=== PATIENT | female | born 1990 | race Caucasian/White ===

== ENCOUNTER 2018-12-27 08:37 | Observation (INO) | payer OTHER ==
[~2018-12-27] VITALS: Ht 157.5 cm; Wt 61.2 kg
[~2018-12-27 08:37] MED LIST: ALBU0.099 IH; PREN-385 PO
[2018-12-27] MEDS ORDERED: TERBUTALINE 1 MG/ML VIAL SUBQ SCH (09:00)
[2018-12-27] MEDS ORDERED: TERBUTALINE 1 MG/ML VIAL SUBQ ONE (09:13)
[2018-12-27 10:43] VITALS: BP 108/59
== END 2018-12-27 14:15 | disposition home or self-care (01) ==
LOC: MLD 08:37
PROVIDERS: ADMIT Obstetrics & Gynecology; ATTEND Obstetrics & Gynecology
DX: O26.892 Other specified pregnancy related conditions, second trimester (principal); R10.9 Unspecified abdominal pain; Z3A.26 26 weeks gestation of pregnancy
CPT/HCPCS: 81000; 96372; G0378; J3105

== ENCOUNTER 2021-08-17 10:18 | Emergency (ER) | payer OTHER ==
[~2021-08-17] VITALS: Ht 154.9 cm; Wt 70.3 kg
[~2021-08-17 10:18] MED LIST changes: -ALBU0.099 IH
[2021-08-17 10:28] VITALS: BP 117/66
--- NOTE | 2021-08-17 10:32 | NUR ---
PT SENT TO LOBBY
[2021-08-17 11:13] LABS: BASOPHILS # (AUTO) 0.1 K/uL (0.00-0.22); BASOPHILS % (AUTO) 0.6 % (0.0-2.0); EOSINOPHILS # (AUTO) 0.2 K/uL (0-0.4); HEMATOCRIT 39.1 % (36-48); HEMOGLOBIN 12.8 g/dL (12.0-16.0); LYMPHOCYTES # (AUTO) 2.8 K/uL (2.5-16.5); MEAN CORPUSCULAR HEMOGLOBIN 28 pg (27-31); MEAN CORPUSCULAR HGB CONC 33 g/dL (33-37); MEAN CORPUSCULAR VOLUME 86.1 fL (80-94); MONOCYTES # (AUTO) 0.7 K/uL (0.8-1.0); MONOCYTES % (AUTO) 6.5 % (1.7-9.3); NEUTROPHILS # (AUTO) 7.4 K/uL (1.8-7.7); NEUTROPHILS % (AUTO) 65.9 % (42.2-75.2); PLATELET COUNT (AUTO) 296 K/uL (140-450); RED BLOOD CELL COUNT(AUTO) 4.54 MIL/uL (4.20-5.40); RED CELL DISTRIBUTION WIDTH 13.7 % (11.6-13.7); WHITE BLOOD COUNT (AUTO) 11.2 K/uL (4.8-10.8)
[2021-08-17 11:15] LABS: BILIRUBIN,URINE NEGATIVE (NEGATIVE); COLOR,URINE YELLOW (YELLOW); LEUKOCYTE ESTERASE ,URINE 2+ (NEGATIVE); NITRITE, URINE NEGATIVE (NEGATIVE); UGLUCOSE NEGATIVE (NEGATIVE)
[2021-08-17 11:28] LABS: ALBUMIN 3.3 g/dL (3.4-5.0); ANION GAP 9.4 (8-16); CARBON DIOXIDE 27.4 mmol/L (21-32); CREATININE 0.5 mg/dL (0.6-1.3); POTASSIUM 3.8 mmol/L (3.5-5.1); TOTAL BILIRUBIN 0.2 mg/dL (0.0-1.0)
[2021-08-17 11:29] LABS: APPEARANCE,URINE SLIGHTLY HAZY (CLEAR)
[2021-08-17 11:31] LABS: BLOOD, URINE 1+ (NEGATIVE)
[2021-08-17 11:34] LABS: RBC,URINE 0-5 /HPF (0-5)
--- NOTE | 2021-08-17 12:29 | NUR ---
30/F BIB SELF WITH C/O ABDOMINAL CRAMPING AND VAGINAL BLEEDING SINCE THIS MORNING. PATIENT STATES BLEEDING HAS SINCE SLOWED DOWN BUT SHE IS STILL SPOTTING, REPORTS BEING APPROXIMATELY 8 WEEKS REPORTS SOME NAUSEA, DENIES V/D, CP, SOB, FEVER OR CHILLS. A0.
[2021-08-17 13:12] VITALS: BP 108/59
--- NOTE | 2021-08-17 13:13 | NUR ---
Patient discharged with v/s stable. Written and verbal after care instructions ABOUT THREATENED MISCARRIAGE AND SUBCHORIONIC HEMATOMA given and explained. Patient verbalized understanding. Ambulatory with steady gait. All questions addressed prior to discharge. Advised to follow up with PMD.
== END 2021-08-17 13:13 | disposition home or self-care (01) ==
LOC: MED 10:18
DX: O20.8 Other hemorrhage in early pregnancy (principal); J45.909 Unspecified asthma, uncomplicated; Z3A.08 8 weeks gestation of pregnancy; Z88.0 Allergy status to penicillin; Z79.899 Other long term (current) drug therapy
CPT/HCPCS: 36415; 76801; 80053; 81001; 81025; 84702; 85025; 86886; 86900; 86901; 87086; 99284; Q0092

== ENCOUNTER 2022-03-22 09:07 | Inpatient (IN) | payer OTHER ==
[~2022-03-22] VITALS: Ht 154.9 cm; Wt 81.6 kg
[2022-03-22] MEDS ORDERED: CLINDAMYCIN 900 MG in DEXTROSE 5% 100 ML IV SCH (09:35)
[2022-03-22] MEDS ORDERED: CITRIC ACID/SODIUM CITRATE 30 ML UDC PO SCH (09:35)
[2022-03-22] MEDS ORDERED: METHYLERGONOVINE 0.2 MG/ML AMP IM PRN ×2 (09:35→12:20)
[2022-03-22 09:59] LABS: APPEARANCE,URINE CLEAR (CLEAR); BILIRUBIN,URINE NEGATIVE (NEGATIVE); BLOOD, URINE NEGATIVE (NEGATIVE); COLOR,URINE YELLOW (YELLOW); LEUKOCYTE ESTERASE ,URINE 2+ (NEGATIVE); NITRITE, URINE NEGATIVE (NEGATIVE); UGLUCOSE NEGATIVE (NEGATIVE)
[2022-03-22 10:04] LABS: BASOPHILS % (AUTO) 0.5 % (0.0-2.0); EOSINOPHILS # (AUTO) 0.2 K/uL (0-0.4); EOSINOPHILS % (AUTO) 1.8 % (0.0-4.0); HEMATOCRIT 33.2 % (36-48); HEMOGLOBIN 10.7 g/dL (12.0-16.0); LYMPHOCYTES % (AUTO) 22.1 % (20.5-51.1); MEAN CORPUSCULAR HEMOGLOBIN 24 pg (27-31); MEAN CORPUSCULAR HGB CONC 32 g/dL (33-37); MEAN CORPUSCULAR VOLUME 75.7 fL (80-94); MONOCYTES # (AUTO) 0.6 K/uL (0.8-1.0); MONOCYTES % (AUTO) 6.1 % (1.7-9.3); NEUTROPHILS # (AUTO) 6.3 K/uL (1.8-7.7); NEUTROPHILS % (AUTO) 69.5 % (42.2-75.2); PLATELET COUNT (AUTO) 259 K/uL (140-450); RED BLOOD CELL COUNT(AUTO) 4.38 MIL/uL (4.20-5.40); RED CELL DISTRIBUTION WIDTH 15.7 % (11.6-13.7); WHITE BLOOD COUNT (AUTO) 9.1 K/uL (4.8-10.8)
[2022-03-22 10:15] LABS: OTHER CASTS, URINE None Seen /LPF (None Seen); RBC,URINE 0-5 /HPF (0-5)
[2022-03-22 10:18] LABS: ALBUMIN 2.6 g/dL (3.4-5.0); ANION GAP 13.3 (8-16); CARBON DIOXIDE 20.6 mmol/L (21-32); CREATININE 0.5 mg/dL (0.6-1.3); POTASSIUM 3.9 mmol/L (3.5-5.1); PROTHROMBIN TIME 9.3 secs (10.8-13.4)
[2022-03-22] MEDS: LACTATED RINGERS 1,000 ML IV SCH ×2 (10:49→11:18)
--- NOTE | 2022-03-22 10:49 | NUR ---
PATIENT HAS BEEN SCREENED AND CATEGORIZED LOW NUTRITION RISK. PATIENT WILL BE SEEN WITHIN 7 DAYS OF ADMISSION. 03/28/[address]
[2022-03-22 11:17] LABS: TOTAL BILIRUBIN 0.3 mg/dL (0.0-1.0)
[2022-03-22] MEDS ORDERED: MORPHINE PRES FREE 10 MG/10 ML AMP IV ONE (11:30)
[2022-03-22 11:41] VITALS: BP 109/66
[2022-03-22] MEDS ORDERED: OXYTOCIN 20 UNITS/LR PREMIX 1,000 ML IV ONE (12:08)
[2022-03-22] MEDS ORDERED: TEMAZEPAM 15 MG CAP PO PRN (12:20)
[2022-03-22] MEDS ORDERED: oxyCODONE/APAP 5/325 MG 1 TAB TAB PO PRN (12:20)
[2022-03-22] MEDS ORDERED: KETOROLAC 30 MG/ML VIAL IVP PRN (12:20)
[2022-03-22] MEDS ORDERED: METOCLOPRAMIDE 10 MG/2 ML INJ VIAL IVP PRN (13:05)
[2022-03-22] MEDS ORDERED: NALBUPHINE 10 MG/ML AMP IVP PRN (13:10)
[2022-03-22] MEDS ORDERED: NALOXONE 0.4 MG/ML VIAL IVP PRN ×3 (13:10)
[2022-03-22] MEDS ORDERED: diphenhydrAMINE 50 MG/ML VIAL IVP PRN (13:10)
[2022-03-22] MEDS: OXYTOCIN 20 UNITS in LACTATED RINGERS 1,000 ML IV SCH (18:00)
[2022-03-22] MEDS ORDERED: HYDROmorphone 1 MG/ML AMP IVP PRN (20:30)
[2022-03-22] MEDS: DOCUSATE SOD/SENNA 50/8.6 MG 1 TAB PO SCH (21:00)
[2022-03-22] MEDS ORDERED: HYDROcodone/APAP 5/325 MG 1 TAB TAB PO PRN (23:10)
[2022-03-23] MEDS ORDERED: OXYTOCIN 20 UNITS/LR PREMIX 1,000 ML IV ONE (01:17)
[2022-03-23] MEDS: OXYTOCIN 20 UNITS in LACTATED RINGERS 1,000 ML IV SCH (02:15)
[2022-03-23] MEDS ORDERED: CAMERA MC ONE (07:14)
[2022-03-23 07:56] LABS: BASOPHILS % (AUTO) 0.2 % (0.0-2.0); EOSINOPHILS # (AUTO) 0.1 K/uL (0-0.4); EOSINOPHILS % (AUTO) 0.4 % (0.0-4.0); HEMATOCRIT 25.9 % (36-48); HEMOGLOBIN 8.5 g/dL (12.0-16.0); LYMPHOCYTES # (AUTO) 2.6 K/uL (2.5-16.5); LYMPHOCYTES % (AUTO) 19.8 % (20.5-51.1); MEAN CORPUSCULAR HEMOGLOBIN 25 pg (27-31); MEAN CORPUSCULAR HGB CONC 33 g/dL (33-37); MEAN CORPUSCULAR VOLUME 75.4 fL (80-94); MONOCYTES # (AUTO) 0.8 K/uL (0.8-1.0); MONOCYTES % (AUTO) 6.3 % (1.7-9.3); NEUTROPHILS # (AUTO) 9.7 K/uL (1.8-7.7); NEUTROPHILS % (AUTO) 73.3 % (42.2-75.2); PLATELET COUNT (AUTO) 228 K/uL (140-450); RED BLOOD CELL COUNT(AUTO) 3.43 MIL/uL (4.20-5.40); RED CELL DISTRIBUTION WIDTH 15.6 % (11.6-13.7); WHITE BLOOD COUNT (AUTO) 13.3 K/uL (4.8-10.8)
[2022-03-23] MEDS: SIMETHICONE 80 MG TAB.CHEW PO PRN ×3 (08:33→20:51)
[2022-03-23] MEDS: oxyCODONE/APAP 5/325 MG 1 TAB TAB PO PRN ×2 (10:40→20:50)
[2022-03-23] MEDS ORDERED: HYDROCORTISONE SUPPOSITORY 25 MG SUPP RC PRN (12:15)
[2022-03-23] MEDS: DOCUSATE SOD/SENNA 50/8.6 MG 1 TAB PO SCH (20:51)
[2022-03-24] MEDS: IBUPROFEN 800 MG TAB PO PRN ×2 (02:02→13:05)
[2022-03-24] MEDS: oxyCODONE/APAP 5/325 MG 1 TAB TAB PO PRN (08:41)
[2022-03-24] MEDS: SIMETHICONE 80 MG TAB.CHEW PO PRN (08:41)
== END 2022-03-24 14:00 | disposition home or self-care (01) | DRG 540 ==
LOC: MLD 09:07 → OBSVTOIN 11:22 → MFCC 13:00
PROVIDERS: ADMIT Obstetrics & Gynecology; ATTEND Obstetrics & Gynecology
PROC: 10D00Z1 Extraction of Products of Conception, Low, Open Approach (ICD-10-PCS; principal; 2022-03-22 12:00)
DX: O36.63X0 Maternal care for excessive fetal growth, third trimester, not applicable or unspecified (principal); Z20.822 Contact with and (suspected) exposure to COVID-19; Z37.0 Single live birth; Z3A.39 39 weeks gestation of pregnancy
CPT/HCPCS: 36415; 51702; 80053; 81001; 85025; 85610; 85730; 86592; 86886; 86900; 86901; 87086; J2270; J2590; J3490; J7060